=== PATIENT | male | born 2000 | race African-American/Black ===

== ENCOUNTER 2020-12-14 17:40 | Emergency (ER) | payer MEDICAID ==
[~2020-12-14] VITALS: Ht 172.7 cm; Wt 85.0 kg
[~2020-12-14 17:40] MED LIST: LEVO500T2 PO; METR500T PO; TRAM50TA94 PO
[2020-12-14] MEDS ORDERED: IBUPROFEN 400MG TABLET PO ONE (18:30)
[2020-12-14] MEDS ORDERED: ACETAMINOPHEN 325MG TABLET PO ONE (18:30)
[2020-12-14 19:45] VITALS: BP 117/76
== END 2020-12-14 19:40 | disposition home or self-care (01) ==
LOC: ER 17:40
DX: S60.211A Contusion of right wrist, initial encounter (principal); X58.XXXA Exposure to other specified factors, initial encounter; Y93.89 Activity, other specified; Y92.89 Other specified places as the place of occurrence of the external cause; Y99.8 Other external cause status; Z79.899 Other long term (current) drug therapy
CPT/HCPCS: 29125; 73110; 99283

== ENCOUNTER 2021-07-23 22:01 | Emergency (ER) | payer SELFPAY ==
[~2021-07-23] VITALS: Ht 172.7 cm; Wt 76.0 kg
[2021-07-23 23:32] VITALS: BP 120/71
== END 2021-07-24 01:10 | disposition left against medical advice (07) ==
LOC: ER 22:01
DX: M79.641 Pain in right hand (principal); Z87.828 Personal history of other (healed) physical injury and trauma
CPT/HCPCS: 99281